=== PATIENT | male | born 1965 | race Two or more races ===

== ENCOUNTER 2022-12-30 11:29 | Emergency (ER) | payer BC ==
[~2022-12-30] VITALS: Ht 175.3 cm; Wt 97.5 kg
--- NOTE | 2022-12-30 11:42 | NUR ---
PT CAME IN DUE TO BLEEDING OF PREVIUOS ABDOMINOPLASTY, DEHYDRATION DUE VOMITING AND HYPERTENSION. TUMSUSAN ELLIS WAS DONE 4DAYS AGO HAD NO BM 4 DAYSPUT 2DULCOLAX SUPP THEN HE NOTICED HIS SX INCISION STARTED TO BLEED, THUS CALLED EMT.
[2022-12-30] MEDS ORDERED: IV NS 0.9% 1,000 ML BAG IV ONE ×2 (12:00→12:30)
--- NOTE | 2022-12-30 12:16 | NUR ---
DELMA DRAWN AND SENT TO LAB
[2022-12-30 12:22] LABS: CALCIUM, SERUM 8.8 mg/dL (8.5-10.1); CREATININE 1.6 mg/dL (0.6-1.3)
[2022-12-30 12:27] LABS: ALBUMIN 2.9 g/dL (3.4-5.0); BILIRUBIN,DIRECT 0.2 mg/dL (0.0-0.2); BILIRUBIN,TOTAL 0.6 mg/dL (0.2-1.0); TOTAL PROTEIN, SERUM 6.4 g/dL (6.4-8.2)
[2022-12-30 12:32] LABS: BASOPHILS # (AUTO) 0.1 K/uL (0.0-0.2); BASOPHILS % (AUTO) 0.9 % (0.0-2.0); EOSINOPHILS % (AUTO) 0.4 % (0.0-6.0); HEMATOCRIT 38 % (39-51); HEMOGLOBIN 11.9 g/dL (13.5-17.5); LYMPHOCYTES # (AUTO) 1.4 K/uL (0.8-4.8); LYMPHOCYTES % (AUTO) 10.9 % (20.0-44.0); MEAN CORPUSCULAR HGB CONC 32 g/dl (31.0-36.0); MEAN CORPUSCULAR VOLUME 93 fL (80-96); MONOCYTES # (AUTO) 1.1 K/uL (0.1-1.30); MONOCYTES % (AUTO) 8.5 % (2.0-12.0); NEUTROPHILS # (AUTO) 10.2 K/uL (1.8-8.9); NEUTROPHILS % (AUTO) 79.3 % (43.0-81.0); PLATELET COUNT (AUTO) 351 K/uL (150-450); RED BLOOD CELL COUNT(AUTO) 4.06 MIL/uL (4.5-6.0); WHITE BLOOD COUNT (AUTO) 12.8 K/uL (4.3-11.0)
--- NOTE | 2022-12-30 12:55 | NUR ---
CHANGED DRESSING AND APPLIED TRIPLE ANTIBIOTIC OINT. REAPPLY ABDOMINAL BINDER.
[2022-12-30 13:56] VITALS: BP 104/60
== END 2022-12-30 13:57 | disposition home or self-care (01) ==
LOC: ER 11:35
DX: I95.9 Hypotension, unspecified (principal); E86.0 Dehydration; E11.9 Type 2 diabetes mellitus without complications; Z60.2 Problems related to living alone
CPT/HCPCS: 99283; 96360; 96361; 85025; 80048; 83690; 80076; 36415; J7030